=== PATIENT | male | born 1995 | race Caucasian/White ===

== ENCOUNTER 2017-06-23 19:39 | Emergency (ER) | payer OTHER ==
[2017-06-23 20:03] VITALS: BP 143/90
[2017-06-23] MEDS ORDERED: Acetaminophen/HYDROcodone 325-5 MG Tab PO ONE (20:15)
--- NOTE | 2017-06-23 20:49 | EDM.PDOC ---
ED HPI GENERAL MEDICAL PROBLEM - General Chief Complaint: Upper Extremity Injury/Pain Stated Complaint: INJURED LEFT ARM Time Seen by Provider: 06/23/17 20:03 Source of Information: Reports: Patient, RN Notes Reviewed History Limitations: Reports: No Limitations - History of Present Illness INITIAL COMMENTS - FREE TEXT/NARRATIVE: The patient states that he was going down stairs at a hotel around 19:00 tonight , when he missed a step and fell forward, landing on an outstretched left upper extremity. He presents with pain to his distal left radius, although the pain radiates to his left thumb primarily, especially if he tries to move his thumb. The patient states that he is otherwise uninjured. He reports that he had a left scaphoid bone fracture in 2013, requiring casting , but not surgery. The patient's PCP is in [place], [place]. Left Wrist Pain Score (Numeric/FACES): 8 - Related Data Allergies Allergy/AdvReac Type Severity Reaction Status Date / Time Penicillins Allergy Cannot Verified 06/23/17 19:56 Remember Home Meds: Home Meds . [No Known Home Meds] 06/23/17 [History] Past Medical History Psychiatric History: Reports: Anxiety, Depression - Past Surgical History HEENT Surgical History: Reports: Oral Surgery ([place] teeth extraction) Dermatological Surgical History: Reports: Other (See Below) (Pilonidal cyst removal) Social & Family History - Tobacco Use Smoking Status *Q: Never Smoker - Alcohol Use Alcohol Use History: Yes Alcohol Use Frequency: Socially - Recreational Drug Use Recreational Drug Use: No - Living Situation & Occupation Living situation: Reports: Single, with Family Occupation: Employed ([employer]) Review of Systems - Review of Systems Review Of Systems: See Below Constitutional: Reports: No Symptoms Eyes: Reports: No Symptoms Ears: Reports: No Symptoms Nose: Reports: No Symptoms Mouth/Throat: Reports: No Symptoms Respiratory: Reports: No Symptoms Cardiovascular: Reports: No Symptoms GI/Abdominal: Reports: No Symptoms Genitourinary: Reports: No Symptoms Musculoskeletal: Reports: No Symptoms Skin: Reports: No Symptoms Neurological: Reports: No Symptoms Psychiatric: Reports: No Symptoms ED EXAM, GENERAL - Physical Exam Exam: See Below Exam Limited By: No Limitations General Appearance: Alert, WD/WN, Mild Distress (appears uncomfortable) Extremities: Other (Mild swelling and erythema over the distal radius, radial aspect. This area is tender to palpation. Pain is induced in this area with compression of the mid-forearm. No tenderness to palpation of the forearm or elbow themselves. Normal ROM at the elbow, without significant pain. Pain is induced with ROM of the left wrist. Neurovascular status of the left upper cavity is intact.) Course - Vital Signs Last Recorded V/S: Last Vital Signs Temp Pulse 84 06/23/17 20:01 Resp 15 06/23/17 20:01 BP 143/90 H 06/23/17 20:01 Pulse Ox 97 06/23/17 20:01 - Orders/Labs/Meds Orders: Active Orders 24 hr Category Date Time Status Forearm 2V Lt [CR] Stat Exams 06/23/17 20:13 Taken Wrist Comp Min 3V Lt [CR] Stat Exams 06/23/17 20:14 Taken Meds: Medications Discontinued Medications Generic Name Dose Route Start Last Admin Trade Name Freq PRN Reason Stop Dose Admin Hydrocodone Bitart/Acetaminophen 2 tab 06/23/17 20:15 06/23/17 20:26 [place] 325-5 Mg PO 06/23/17 20:16 2 tab ONETIME ONE Administration - Re-Assessments/Exams Free Text/Narrative Re-Assessment/Exam: 06/23/17 20:47 5-view radiographs of the left wrist appears to demonstrate a subtle buckle fracture of the distal radius. No other abnormalities are identified. Due to the subtle nature, I have asked Radiology to review these radiographs. 2-view radiographs of the left forearm appear to be unremarkable, with no bony abnormality, such as fracture or dislocation, identified. Formal read per the radiologist pending. 06/23/17 21:08 5-view radiographs of the left wrist is read by [facility] as "Normal left wrist x-rays." 06/23/17 21:10 The patient appears to have a contusion to his left wrist area. I'm recommending ice and elevation over the next 2 days, and ibuprofen as needed for discomfort. He may use the wrist as tolerated. Departure - Departure Time of Disposition: 21:11 Disposition: Home, Self-Care 01 Condition: Good Clinical Impression: Contusion of left wrist - Discharge Information Instructions: Hand Contusion Referrals: PCP,None [Primary Care Provider] - Forms: ED Department Discharge Additional Instructions: You were seen in the emergency room after falling down stairs and injuring your left wrist. Workup in the ER included x-rays of your left wrist and left forearm. After review by the Radiologist, no broken bones or dislocations were found. It appears that you have contused/bruised your left wrist. We recommend you ice and elevate your left wrist as much as possible over the next 2 days, to help minimize swelling. Take [id number] ibuprofen 2-3 tablets (400-600 mg) up to every 8 hours, with food, as needed for discomfort. You may use your wrist as tolerated. If any other problems, please do not hesitate to return to the ER. - My Orders Last 24 Hours: My Active Orders 06/23/17 20:13 Forearm 2V Lt [CR] Stat 06/23/17 20:14 Wrist Comp Min 3V Lt [CR] Stat - Assessment/Plan Last 24 Hours: My Active Orders 06/23/17 20:13 Forearm 2V Lt [CR] Stat 06/23/17 20:14 Wrist Comp Min 3V Lt [CR] Stat
--- NOTE | 2017-06-25 11:33 | CR ---
Left forearm: Two views of the left forearm were obtained. Comparison: No previous study. No fracture or other abnormality is identified. Impression: 1. No abnormality is identified on two-view left forearm study. Diagnostic code #2
--- NOTE | 2017-06-25 11:36 | CR ---
Left wrist: Four views of the left wrist were obtained as well as an additional navicular view. Joint spaces within the left wrist are preserved. No fracture, dislocation or other bony abnormality is identified. Impression: 1. No abnormality is seen on left wrist exam. Diagnostic code #1
== END 2017-06-23 21:20 | disposition home or self-care (01) ==
LOC: JD.ED 19:39
DX: S60.212A Contusion of left wrist, initial encounter (principal); Z88.0 Allergy status to penicillin; W10.9XXA Fall (on) (from) unspecified stairs and steps, initial encounter
CPT/HCPCS: 73090; 73110; 99283; A9270